=== PATIENT | male | born 1960 | race Caucasian/White ===

== ENCOUNTER 2017-05-13 10:47 | Inpatient (IN) | payer OTHER ==
[2017-05-06 12:42] LABS: BASOPHILS % (AUTO) 0.6 % (0-1); EOSINOPHILS # (AUTO) 0.2 X10'3 (0-0.9); EOSINOPHILS % (AUTO) 2.9 % (0-6); LYMPHOCYTES # (AUTO) 1.8 X10'3 (1.1-4.8); LYMPHOCYTES % (AUTO) 29.1 % (21-51); MEAN CORPUSCULAR HEMOGLOBIN 30.5 PG (27.0-31.0); MEAN CORPUSCULAR HGB CONC 34.3 % (33.0-36.5); MEAN CORPUSCULAR VOLUME 88.8 FL (78-98); MEAN PLATELET VOLUME 9.2 FL (7.4-10.4); MONOCYTES # (AUTO) 0.5 X10'3 (0-0.9); MONOCYTES % (AUTO) 8.8 % (2-12); NEUTROPHILS # (AUTO) 3.6 X10'3 (1.8-7.7); NEUTROPHILS % (AUTO) 58.6 % (42-75); PRE OP HEMATOCRIT 43.2 % (42.0-52.0); PRE OP HEMOGLOBIN 14.8 g/dL (14.0-17.9); PRE OP PLATELET COUNT 202 X10'3 (140-440); RED BLOOD COUNT 4.86 X10'6 (4.70-6.10); RED CELL DISTRIBUTION WIDTH 13.5 % (11.5-14.5)
[2017-05-06 12:45] LABS: CLARITY,URINE Clear (Clear); COLOR,URINE Yellow (Yellow); GLUCOSE, URINE Negative (Neg); KETONES,URINE Negative (Neg); LEUKOCYTE ESTERASE ,URINE Negative (Neg); NITRITES, URINE Negative (Neg); OCCULT BLOOD,URINE Negative (Neg); PH,URINE 6.5 (4.8-8.0); PROTEIN,URINE Negative (Neg)
[2017-05-06 12:50] LABS: UA COLLECTION TYPE VOIDED
[2017-05-06 12:55] LABS: PRE OP PROTIME 10.3 SECONDS (9.0-12.0)
[2017-05-06 13:00] LABS: ALBUMIN 4.5 G/DL (3.4-5.0); ALBUMIN/GLOBULIN RATIO 1.4 (1.1-1.5); ALKALINE PHOSPHATASE 60 IU/L (46-116); BLOOD UREA NITROGEN 12 MG/DL (7-18); CALCIUM 9.5 MG/DL (8.5-10.1); CHLORIDE 103 MMOL/L (99-107); PRE OP ALT 58 U/L (30-65); PRE OP ANION GAP 6 (8-16); PRE OP AST 24 U/L (10-37); PRE OP BILIRUB, TOTAL 0.4 MG/DL (0.0-1.0); PRE OP GLUCOSE 117 MG/DL (70-104); PRE OP SODIUM 139 MMOL/L (135-145); TOTAL CARBON DIOXIDE 29.7 MMOL/L (24-32); TOTAL PROTEIN 7.7 G/DL (6.4-8.2); eGFR 78 ML/MIN
[2017-05-06 13:01] LABS: HEMOGLOBIN A1C 6.2 % (4.5-6.2)
[~2017-05-13] VITALS: Ht 185.4 cm; Wt 94.8 kg
[2017-05-13] VITALS (17 sets, daily range): BP systolic 96–118; BP diastolic 58–82
[~2017-05-13 10:47] MED LIST: ATOR20TA PO; LOSA25TA96 PO; ceFAZolin 2gm in dextrose, iso 100 ML IV ONE; famotidine 20mg tablet PO ONE; ringers solution, lacted 1,000 ML IV SCH; vancomycin inj 1,500 MG in normal saline 300ml IV soln IV ONE
[2017-05-13] MEDS ORDERED: cloNIDine hcl/PF 100mcg/ml inj ONE (10:48)
[2017-05-13] MEDS ORDERED: epiNEPHrine 1 mg/ml inj ONE (10:48)
[2017-05-13] MEDS ORDERED: vancomycin 1,000mg inj ONE (10:48)
[2017-05-13] MEDS ORDERED: ketorolac trometh. 30mg/ml inj. ONE (10:48)
[2017-05-13] MEDS ORDERED: ROPIVAcaine 0.5% (5mg/ml) 30ml vial ONE ×2 (10:49→14:02)
[2017-05-13] MEDS ORDERED: LIDOcaine 1% (10mg/ml) 2ml vial ONE (11:04)
[2017-05-13] MEDS ORDERED: ringers solution, lacted 1,000 ML IV SCH (11:13)
[2017-05-13] MEDS ORDERED: proCHLORperazine 10 MG/2 ml inj IV PRN (11:15)
[2017-05-13] MEDS ORDERED: ondansetron/PF 4mg/2ml inj IV PRN ×2 (11:15→11:35)
[2017-05-13] MEDS ORDERED: meperidine/PF 25mg/ml syringe IV PRN ×3 (11:15)
[2017-05-13] MEDS ORDERED: oxyCODONE/APAP 10/325mg tablet PO PRN (11:35)
[2017-05-13] MEDS ORDERED: diphenhydrAMINE 25mg capsule PO PRN ×2 (11:35)
[2017-05-13] MEDS ORDERED: acetaminophen 325mg tablet PO PRN (11:35)
[2017-05-13] MEDS ORDERED: magnesium hydroxide 30ml (MOM) UD suspension PO PRN (11:35)
[2017-05-13] MEDS ORDERED: HYDROmorphone 1 mg/ml syringe IV PRN ×2 (11:35)
[2017-05-13] MEDS ORDERED: bisacodyl 10mg suppository rectal RC PRN (11:35)
[2017-05-13] MEDS ORDERED: tranexamic acid inj. 1,000 MG in normal saline 100ml IV soln 90 ML IV ONE (11:35)
[2017-05-13] MEDS: oxyCODONE/APAP 10/325mg tablet PO SCH ×3 (12:00→20:51)
[2017-05-13] MEDS ORDERED: MIDAZolam 1mg/ml 10ml vial ONE (12:04)
[2017-05-13] MEDS ORDERED: fentaNYL/PF 50MCG/1 ML 2ML syringe ONE (12:04)
[2017-05-13] MEDS ORDERED: propofol inj 20 ML IV ONE (12:19)
[2017-05-13] MEDS: gabapentin 300mg capsule PO SCH ×2 (13:00→20:51)
[2017-05-13] MEDS ORDERED: ceFAZolin 2gm in dextrose, iso 50 ML IV SCH (16:00)
[2017-05-13] MEDS: ceFAZolin 2gm in dextrose, iso 100 ML IV SCH (19:06)
[2017-05-13] MEDS: potassium cl 20mEq in 1/2 NS 1,000 ML IV SCH ×2 (19:06→20:51)
[2017-05-13] MEDS: ascorbic acid 500mg tablet PO SCH (20:51)
[2017-05-13] MEDS: celeCOXIB 100mg capsule PO SCH (20:51)
[2017-05-13] MEDS ORDERED: atorvastatin 20mg tablet PO SCH (21:00)
[2017-05-13] MEDS ORDERED: sennosides 8.6mg tablet PO SCH (21:00)
[2017-05-14] MEDS: ceFAZolin 2gm in dextrose, iso 100 ML IV SCH (00:57)
[2017-05-14] MEDS: oxyCODONE/APAP 10/325mg tablet PO SCH ×3 (00:57→05:41)
[2017-05-14 02:08] VITALS: BP 103/57
[2017-05-14] MEDS: potassium cl 20mEq in 1/2 NS 1,000 ML IV SCH (05:42)
[2017-05-14 06:00] VITALS: BP 102/55
[2017-05-14 06:24] LABS: BASOPHILS % (AUTO) 0.3 % (0-1); EOSINOPHILS # (AUTO) 0.1 X10'3 (0-0.9); EOSINOPHILS % (AUTO) 1.4 % (0-6); HEMATOCRIT 36.7 % (42.0-52.0); HEMOGLOBIN 12.4 g/dl (14.0-17.9); LYMPHOCYTES % (AUTO) 10.4 % (21-51); MEAN CORPUSCULAR HEMOGLOBIN 30.3 PG (27.0-31.0); MEAN CORPUSCULAR HGB CONC 33.9 % (33.0-36.5); MEAN CORPUSCULAR VOLUME 89.3 FL (78-98); MEAN PLATELET VOLUME 8.9 FL (7.4-10.4); MONOCYTES # (AUTO) 0.7 X10'3 (0-0.9); MONOCYTES % (AUTO) 7.1 % (2-12); NEUTROPHILS % (AUTO) 80.8 % (42-75); PLATELET COUNT 186 X10'3 (140-440); RED BLOOD COUNT 4.11 X10'6 (4.70-6.10); RED CELL DISTRIBUTION WIDTH 13.6 % (11.5-14.5); WHITE BLOOD COUNT 9.9 X10'3 (4.5-11.0)
[2017-05-14 06:50] LABS: ANION GAP 9 (8-16); CHLORIDE 105 MMOL/L (99-107); POTASSIUM 4.5 MMOL/L (3.5-5.1); SODIUM 140 MMOL/L (135-145); TOTAL CARBON DIOXIDE 26.2 MMOL/L (24-32)
[2017-05-14] MEDS ORDERED: multivitamins, therapeutics tablet PO SCH (08:00)
[2017-05-14] MEDS ORDERED: losartan 25mg tablet PO SCH (08:00)
[2017-05-14] MEDS ORDERED: aspirin 325mg tablet PO SCH (08:30)
[2017-05-14] MEDS: gabapentin 300mg capsule PO SCH (09:31)
[2017-05-14] MEDS: celeCOXIB 100mg capsule PO SCH (09:31)
[2017-05-14] MEDS: ascorbic acid 500mg tablet PO SCH (09:31)
[2017-05-14 10:00] VITALS: BP 137/84
[2017-05-14] MEDS ORDERED: ASPI-1 PO (10:18)
[2017-05-14] MEDS ORDERED: WALKERFR (10:19)
== END 2017-05-14 14:40 | disposition home or self-care (01) | DRG 470 ==
LOC: PAS IN 10:47 → EDSTATUS 13:00 → ORTHO 4S 16:11
PROVIDERS: ADMIT Orthopaedic Surgery; ATTEND Orthopaedic Surgery
PROC: 8E0Y0CZ Robotic Assisted Procedure of Lower Extremity, Open Approach (ICD-10-PCS; 2017-05-13)
PROC: 0SRD0J9 Replacement of Left Knee Joint with Synthetic Substitute, Cemented, Open Approach (ICD-10-PCS; principal; 2017-05-13 11:52)
DX: M17.12 Unilateral primary osteoarthritis, left knee (principal); D62 Acute posthemorrhagic anemia; E11.9 Type 2 diabetes mellitus without complications; I10 Essential (primary) hypertension; E78.5 Hyperlipidemia, unspecified; Z79.899 Other long term (current) drug therapy; Z88.1 Allergy status to other antibiotic agents
CPT/HCPCS: 36415; 73560; 80051; 80053; 81003; 82948; 83036; 85025; 85610; 85730; 86885; 86900; 86901; 87070; 97110; 97116; 97162; 97530; A6449; A6455; A7000; C1713; C1758; C1776; J0171; J0690; J0735; J1885; J2250; J2704; J2795; J3010; J3370; J3490; J7030; J7120